=== PATIENT | male | born 1990 | race Caucasian/White ===

== ENCOUNTER 2021-01-06 23:34 | Emergency (ER) | payer OTHER ==
[~2021-01-06] VITALS: Ht 175.3 cm; Wt 82.0 kg
--- NOTE | 2021-01-06 23:45 | NUR ---
Patient BIBA from home on a legal 1999 by [facility]. [facility]. +ETOH tonight per EMS. reports patient and herself were in an argument and patient grabbed a knife stating, "watch me cut myself." Patient then slit his left wrist with a kitchen knife. Patient denies SI and denies cutting himself stating, "I fell on a knife." Patient is in NAD. REspirations even and unlabored. Bleeding controlled and bandaged by EMS.
[2021-01-07] MEDS ORDERED: LIDOCAINE 1%, 10ML INFIL ONE
[2021-01-07 00:01] LABS: BASOPHILS % (AUTO) 2 % (0-1); EOSINOPHILS % (AUTO) 4 % (1-7); LYMPHOCYTES % (AUTO) 41 % (22-44); MD NO; MEAN CORPUSCULAR HEMOGLOBIN 31.9 pg (27.5-34.5); MEAN CORPUSCULAR HGB CONC 34.6 g/dL (33.2-36.2); MEAN PLATELET VOLUME 8.1 fL (7.4-10.4); MONOCYTES % (AUTO) 7 % (2-9); NEUTROPHILS % (AUTO) 47 % (42-75); PLATELET COUNT 270 x10^3/uL (130-400); RED BLOOD COUNT 5.01 x10^6/uL (4.38-5.82); RED CELL DISTRIBUTION WIDTH 14.2 % (9.4-14.8)
[2021-01-07 00:06] LABS: ALANINE AMINOTRANSFERASE 85 U/L (12-78); ALBUMIN 4.1 g/dL (3.4-5.0); ANION GAP 6 mmol/L (5-15); CALCIUM 8.9 mg/dL (8.5-10.1); CHLORIDE 113 mmol/L (98-107); CREATININE 1.01 mg/dL (0.7-1.3); SALICYLATE LEVEL 2.4 mg/dL (2.8-20.0)
[2021-01-07] MEDS ORDERED: LIDOCAINE-MPF 1%, 5ML ONE ×2 (00:06→00:17)
[2021-01-07 00:09] LABS: ALKALINE PHOSPHATASE 101 U/L (45-117); BILIRUBIN,TOTAL 0.2 mg/dL (0.2-1.0); TOTAL PROTEIN 7.6 g/dL (6.4-8.2)
[2021-01-07] MEDS ORDERED: NEOSPORIN OINT. PKT 1 PACKET ONE (00:48)
--- NOTE | 2021-01-07 01:16 | NUR ---
Patient sleeping in gurney. Respirations even and unlabored. Room secured, belongings locked in cabinet.
[2021-01-07] MEDS ORDERED: DIPH,PERTUSS(ACELL),TET VAC/PF 0.5 ML IM-VACC ONE ×2 (01:54)
--- NOTE | 2021-01-07 02:15 | NUR ---
bedside report from jq rn, pt care transferred at this time. nad, appears comfortable, moved to this rns room, transferred to hospital bed at this time. medicated per dec. wctm.
--- NOTE | 2021-01-07 02:26 | NUR ---
Report given to JOSE Rincon. Patient care transferred.
--- NOTE | 2021-01-07 03:32 | NUR ---
pt resting on gurney, nad, eyes open, even and unlabored respirations noted, appears comfortable, sitter in line of sight, room secured. wctm. L2K
--- NOTE | 2021-01-07 05:17 | NUR ---
pt resting on hospital bed, nad, appears comfortable, eyes closed, even and unlabored respirations noted, sitter in line of sight, room secured. wctm. L2K
--- NOTE | 2021-01-07 06:23 | NUR ---
pt resting on hospital bed after getting up to restroom and obtaining uds. pt nad, provided contacts case for comfort, breakfast tray ordered, room secured, sitter in line of sight, benoit. L2K
[2021-01-07 06:44] LABS: AMPHETAMINE SCREEN, URINE Negative (Negative); BARBITURATE SCREEN, URINE Negative (Negative); BENZODIAZEPINE SCREEN, URINE Negative (Negative); CANNABINOID SCREEN, URINE Negative (Negative); COCAINE SCREEN, URINE Negative (Negative); METHADONE SCREEN, URINE Negative (Negative); OPIATE SCREEN, URINE Negative (Negative)
--- NOTE | 2021-01-07 06:55 | NUR ---
report to stacey franco, pt care transferred at this time.
[2021-01-07 07:43] VITALS: BP 129/75
--- NOTE | 2021-01-07 07:44 | NUR ---
Pt resting in bed, safety precautions in place, meal provided.
--- NOTE | 2021-01-07 11:32 | NUR ---
Cleared by psych, discharge plan discussed with ERMD & social work job titles. Belonging returned to patient.
== END 2021-01-07 11:45 | disposition home or self-care (01) ==
LOC: ED 01-07 03:29
DX: S61.512A Laceration without foreign body of left wrist, initial encounter (principal); F10.220 Alcohol dependence with intoxication, uncomplicated; Y90.0 Blood alcohol level of less than 20 mg/100 ml; W45.8XXA Other foreign body or object entering through skin, initial encounter; Y93.89 Activity, other specified; Y92.89 Other specified places as the place of occurrence of the external cause; Y99.8 Other external cause status
CPT/HCPCS: 12042; 36415; 80053; 80143; 80179; 80307; 80320; 85025; 90471; 90715; 99285; G0480